=== PATIENT | female | born 1965 | race Caucasian/White ===

== ENCOUNTER 2017-08-25 21:08 | Emergency (ER) | payer MEDICAID, MEDICARE ==
[~2017-08-25] VITALS: Ht 152.4 cm; Wt 68.0 kg
[~2017-08-25 21:08] MED LIST: ADVA100A INH; ALBUAER3 INH; AMIT10TA6 PO; BUPR150CR PO; BUSP5TAB PO; CALC1TAB87 PO; CORICAP PO; DICL1GEL TOPICAL; GABA800T PO; MULT-135 PO; OPAN10TA19 PO; PROT40TA PO; ROPI.5 PO; SYMB160A INH; TIZA4CAP3 PO; TRAZ100T4 PO
[2017-08-25 21:10] VITALS: BP 99/64; PULSE 74; RESP 16; TEMP 99; O2SAT 98
--- NOTE | 2017-08-25 21:43 | PD ---
HPI Chief Complaint: Hip Injury Time Seen by Provider: 21:31 Travel History International Travel<30 days: No Contact w/Intl Traveler<30days: No Traveled to known affect area: No History of Present Illness HPI 52 yo F w fall onto right hip approx 5 hours prior. pt was walking and a heavy door hit her and she then tripped over her floor landing on the right side. pt unable to walk since the fall. friend brought pt here. no head trauma or LOC. persistent pain reported in er. pt notes she was able to use the bathroom at home after the fall and to transport herself to her friend's car after the fall. PFSH Past Medical History Cancer: No Cardiac Catheterization: Yes Cardiovascular Problems: No Diabetes: No Diminished Hearing: No Endocrine: No Fibromyalgia: Yes GERD: Yes Genitourinary: No Hepatitis: No Hiatal Hernia: No Hypertension: Yes Immune Disorder: No Musculoskeletal: Yes (CHRONIC BACK AND HIP PROBLEMS) Neurologic: No Psychiatric: Yes (ANXITY & DEPRESSION) Reproductive: No Respiratory: Yes (COPD) Thyroid Disease: No Ulcer: Yes Past Surgical History Abdominal Surgery: Yes (GASTRIC BYPASS 2001) AICD: No Body Medical Devices: NONE Cholecystectomy: Yes Gynecologic Surgery: Yes (C SECTION 1988 & 1991) Joint Replacement: No Pacemaker: No Social History Alcohol Use: No Tobacco Use: Yes Substance Use: No Allergies-Medications (Allergen,Severity, Reaction): Coded Allergies: erythromycin base (Verified Allergy, Severe, 08/25/17) promethazine (Verified Allergy, Severe, 08/25/17) "caused her to be very sick" Sulfa (Sulfonamide Antibiotics) (Verified Allergy, Unknown, 08/25/17) Reported Meds & Prescriptions Reported Meds & Active Scripts Active Protonix (Pantoprazole Sodium) 40 Mg Tab 40 Mg PO DAILY Requip (Ropinirole HCl) 0.5 Mg Tab 0.5 Mg PO BID Please complete repeat ANNUAL fasting labs ancelmo! Amitriptyline (Amitriptyline HCl) 10 Mg Tab 10 Mg PO HS Wellbutrin SR 12 HR (Bupropion HCl) 150 Mg Tab 150 Mg PO BID Proair Hfa 8.5 GM Inh (Albuterol Sulfate) 90 Mcg/Act Aer 2 Puff INH Q4-6H PRN Gabapentin 800 Mg Tab 800 Mg PO TID Buspirone (Buspirone HCl) 5 Mg Tab 5 Mg PO TID PRN Coricidin HBP Chest Congestion (Dextromethorphan-Guaifenesin) 10-200 Mg Cap 1 Cap PO Q6H PRN Reported Voltaren Topical (Diclofenac Topical) 1% Gel 1 Applic TOPICAL QID Advair Diskus Inh (Fluticasone-Salmeterol Inh) Unknown Strength Aer Unknown Dose INH BID Rinse mouth after use. Tizanidine (Tizanidine HCl) 4 Mg Cap 4 Mg PO TID Rx'ed Pain Management Multi Vitamin (Multiple Vitamin) 1 Tab Tab 1 Tab PO DAILY Opana (Oxymorphone HCl) 10 Mg Tab 10 Mg PO BID Rx'ed by Pain Management Trazodone (Trazodone HCl) 100 Mg Tab 100 Mg PO HS Symbicort Inh (Budesonide/Formoterol Fumarate) 160-4.5 Mcg/Act Aero 2 Puff INH Q12HR Calcium 600 with Vitamin D (Calcium Carbonate-Cholecalciferol) 600-400 mg-Unit Tab 1 Tab PO DAILY Review of Systems Except as stated in HPI: all other systems reviewed are Neg General / Constitutional: No: Fever Cardiovascular: No: Chest Pain or Discomfort, Palpitations Physical Exam Narrative GENERAL: 52 yo F, WNWD, NAD SKIN: Warm and dry. HEAD: Atraumatic. Normocephalic. EYES: Pupils equal and round. No scleral icterus. No injection or drainage. ENT: No nasal bleeding or discharge. Mucous membranes pink and moist. NECK: Trachea midline. No JVD. CARDIOVASCULAR: Regular rate and rhythm. RESPIRATORY: No accessory muscle use. Clear to auscultation. Breath sounds equal bilaterally. GASTROINTESTINAL: Abdomen soft, non-tender, nondistended. Hepatic and splenic margins not palpable. MUSCULOSKELETAL: TTP R greater trochanter. Flexion at the right hip limited 2/2 pain active. no gross deformity of either hip on exam. NEUROLOGICAL: Awake and alert. No obvious cranial nerve deficits. Motor grossly within normal limits. Five out of 5 muscle strength in the arms and legs. Normal speech. PSYCHIATRIC: Appropriate mood and affect; insight and judgment normal. Data Data Last Documented VS Vital Signs Date Time Temp Pulse Resp B/P (MAP) Pulse Ox O2 Delivery O2 Flow Rate FiO2 08/25/17 23:22 08/25/17 21:10 99.0 74 16 98 Room Air vs reviewed Orders Orders Hip, Uni(Ap&Lat) W Ap Pelvis (08/25/17 21:44) Ketorolac Inj (Toradol Inj) (08/25/17 21:45) Ed Discharge Order (08/25/17 22:48) MDM Medical Decision Making Medical Screen Exam Complete: Yes Emergency Medical Condition: Yes Differential Diagnosis intertrochanteric fracture, pubic ramus fracture, contusion Narrative Course Last 24 hours Impressions Hip and Pelvis X-Ray 08/25/17 9184 Signed Impressions: Service Date/Time: August 22:03 - CONCLUSION: 1. No acute findings. Junaid Burnham MD Imaging unremarkable. Discharge home plans discussed with patient who has verbalized agreement. IM toradol provided here and pt was found sleeping comfortably at time of reassessment prior to discharge. Diagnosis Primary Impression: Contusion, hip Qualified Codes: S70.01XA - Contusion of right hip, initial encounter Med/Other Pt SpecificInfo: No Change to Meds Disposition: 01 DISCHARGE HOME Condition: Stable Luis De Oliveira MD Aug 25, 2017 21:43
[2017-08-25] MEDS ORDERED: KETOROLAC TROMETHAMINE 60 MG/2 ML (IM) VIAL IM ONE (21:45)
--- NOTE | 2017-08-25 22:20 | RADRPT ---
EXAM DATE/TIME: 08/25/2017 22:03 [facility] COMPARISON: No previous studies available for comparison. INDICATIONS : Trauma/ Fall MEDICAL HISTORY : None. SURGICAL HISTORY : None. Gastric Bypass, Neurostimulator, Cervical, C -Sections ENCOUNTER: Initial ACUITY: 1 day PAIN SCORE: 9/10 LOCATION: Right Hip/ Pelvis FINDINGS: Examination of the right hip was performed with AP Pelvis. The primary and secondary trabecular fish lavonne of the femoral neck is intact. The hip joint is of normal width without significant sclerosis or bony hypertrophy. The acetabulum is grossly intact. CONCLUSION: 1. No acute findings. Junaid Burnham MD on August 25, 2017 at 22:17 Board Certified Radiologist. This report was verified electronically.
== END 2017-08-25 23:23 | disposition home or self-care (01) ==
LOC: NEPK 21:08
DX: S70.01XA Contusion of right hip, initial encounter (principal); M79.7 Fibromyalgia; K21.9 Gastro-esophageal reflux disease without esophagitis; I10 Essential (primary) hypertension; F41.9 Anxiety disorder, unspecified; F32.9 Major depressive disorder, single episode, unspecified; J44.9 Chronic obstructive pulmonary disease, unspecified; W01.0XXA Fall on same level from slipping, tripping and stumbling without subsequent striking against object, initial encounter; Z72.0 Tobacco use
CPT/HCPCS: 73502; 96372; 99284; J1885